=== PATIENT | female | born 1965 ===

== ENCOUNTER 2018-12-09 10:25 | Outpatient (CLI) | payer BC ==
--- NOTE | 2018-12-09 12:42 | RAD ---
XR Sacrum and Coccyx STANDARD History: [age] pain in the coccyx Comparison: None. Findings: Advanced left greater than right SI joint degenerative disease. Bones appear to be mildly d emineralized. The obturator rings are intact. Mild narrowing of the pubic symphysis. No acute fracture is appreciated of the distal coccyx is somewhat washed out due to overpenetration. 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
== END 2018-12-09 10:26 | disposition home or self-care (01) ==
LOC: SCSRAD 10:25
PROVIDERS: ATTEND Family Medicine
DX: M53.3 Sacrococcygeal disorders, not elsewhere classified (principal)
CPT/HCPCS: 72220